=== PATIENT | female | born 1990 | race Two or more races ===

== ENCOUNTER 2020-06-07 11:56 | Outpatient (REF) | payer OTHER, SELFPAY ==
[2020-06-07 12:23] LABS: COVID-19 Test Negative (Negative); IDNOW Serial# 55D5AD1C
== END 2020-06-07 11:57 | disposition home or self-care (01) ==
LOC: HO.LAB 11:56
PROVIDERS: Visit Provider Internal Medicine
DX: Z20.828 Contact with and (suspected) exposure to other viral communicable diseases (principal)
CPT/HCPCS: 87635; C9803

== ENCOUNTER 2020-06-17 08:15 | Outpatient (REF) | payer OTHER, SELFPAY ==
[2020-06-17 08:33] LABS: COVID-19 Test Negative (Negative); IDNOW Serial# 55D5AD1C
== END 2020-06-17 08:16 | disposition home or self-care (01) ==
LOC: HO.EMPCOV 08:15
PROVIDERS: Visit Provider Internal Medicine
DX: Z20.828 Contact with and (suspected) exposure to other viral communicable diseases (principal)
CPT/HCPCS: 87635; C9803

== ENCOUNTER 2020-10-01 08:21 | Outpatient (REF) | payer OTHER, SELFPAY ==
[2020-10-01 09:40] LABS: COVID-19 Test Negative (Negative); IDNOW Serial# 55D5AD1C
== END 2020-10-01 08:22 | disposition home or self-care (01) ==
LOC: HO.EMPCOV 08:21
PROVIDERS: Visit Provider Internal Medicine
DX: Z20.822 Contact with and (suspected) exposure to COVID-19 (principal)
CPT/HCPCS: 36415; 87635; C9803

== ENCOUNTER 2020-10-05 09:23 | Outpatient (REF) | payer OTHER, SELFPAY ==
[2020-10-05 10:08] LABS: COVID-19 Test Negative (Negative)
== END 2020-10-05 09:24 | disposition home or self-care (01) ==
LOC: HO.EMPCOV 09:23
PROVIDERS: Visit Provider Internal Medicine
DX: Z20.822 Contact with and (suspected) exposure to COVID-19 (principal)
CPT/HCPCS: 36415; 87635; C9803

== ENCOUNTER 2024-09-10 09:19 | Outpatient (AMB) | payer OTHER, SELFPAY ==
[2024-09-10 09:23] VITALS: BP 120/84; PULSE 66; O2SAT 99; BMI 35.5
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
== END 2024-09-10 10:14 | disposition home or self-care (01) ==
PROVIDERS: Visit Provider Physician Assistant
DX: M54.6 Pain in thoracic spine (principal); M54.2 Cervicalgia; V89.2XXA Person injured in unspecified motor-vehicle accident, traffic, initial encounter; M54.9 Dorsalgia, unspecified

== ENCOUNTER → 2024-09-10 09:19 | Outpatient (BNVA) | payer OTHER, SELFPAY | PROVIDERS: Visit Provider Physician Assistant | DX: M54.6 Pain in thoracic spine (principal); M54.2 Cervicalgia | CPT/HCPCS: 96372; J1885 ==

== ENCOUNTER 2024-11-25 11:00 | Outpatient (AMB) | payer OTHER, SELFPAY ==
--- NOTE | 2024-11-25 11:17 | AM.OFFWIN_ITS ---
Intake Vital Signs 11/25/24 11:21 Weight 169 lb BP 120/86 Blood Pressure Location Lt brachial Position Sitting Pulse 71 Pulse Source Pulse Oximeter Temp 98.3 F Temp Source Oral Pulse Oximetry (%) 98 Oxygen Delivery Method Room Air Intake Visit Reasons: EP cold symptoms Intake Note: Patient here for dry throat, cough, chest congestion, slight SOB that has been present for a couple of days. Patient Tobacco Use Status: Never used Tobacco Allergies No Known Allergies Allergy (Unverified 11/25/24 11:25) Do you need a note to return to daycare/school/sports/work: Yes HPI HPI Comments History of Present Illness Details History - The patient is a 34-year-old female pr esenting with cough and shortness of breath, which started approximately five days ago. - The cough has progressively worsened, interrupting her sleep and causing rib soreness. - She has a history of asthma, managed w ith Welexa twice daily, and uses a nebulizer with rescue inhaler PRN. Has used it this AM with relief of sob. - She also uses a daily allergy pill. - The patient vapes currently. - Denies fevers, ear pain or sinus pain. Physical Exam General: Cooperative, healthy appearing, comfortable and no acute distress Orientation/consciousness: Patient oriented x3 Limitations: No limitations Head: Normal to inspection Ears: Hearing grossly normal bilaterally, external ears normal and TM's normal bilaterally Nose: Normal external nose present, Normal nares present and No nasal discharge present Face and sinus: Normal facial exam and Yes sinuses nontender Mouth: Normal oral and palatal mucosa present and moist mucous membranes Throat: Yes tonsils normal, Yes uvula midline. Posterior oropharynx erythema, no exudates Eyes: Appearance normal, both eyes and all related structures Neck: Normal visual inspection Respiratory: exp wheezes bilaterally. Normal respiratory effort, able to speak in complete sentences, Actively coughing, no respiratory distress, not tachypneic, no tripod positioning and no use of accessory muscles. Cardiovascular: Regular rate and rhythm. Normal S1 and S2 Skin: No rashes or lesions noted Neuro: Patient oriented x3 Extremities: Normal to inspection and Yes no clubbing, cyanosis or edema PFSH Social History Patient Tobacco Use Status: Never used Tobacco Review of Systems Const All systems reviewed & are unremarkable except as noted in HPI and below Physical Exam Vital Signs: Last Vital Signs Temp 98.3 F 11/25/24 11:21 Pulse 71 11/25/24 11:21 BP 120/86 11/25/24 11:21 Pulse Ox 98 11/25/24 11:21 Oxygen Delivery Method Room Air 11/25/24 11:21 Assessment & Plan Assessment & Plan (1) Lower respiratory infection (e.g., bronchitis, pneumonia, pneumonitis, pulmonitis): Code(s): J22 - Unspecified acute lower respiratory infection Plan: VSS, pt well appearing and PE remarkable for exp wheezes. - Prescribe prednisone for acute asthma exacerbation to alleviate wheezing and difficulty breathing. - Prescribe doxycycline in place of azithromycin to manage potential bacterial involvement without risk of QT prolongation with citalopram. - Advise frequent nebulizer use and supplemental inhaler use as needed for imme diate symptom relief. - Emphasize the cessation of vaping to prevent exacerbation of asthma symptoms. - Continue daily allergy medication for symptom management. - Provide a note for work absence and advise return if symptoms persist, to evaluate further need for intervention. Patient was informed and verbally consented to the use of an ambient scribe for clinic note documentation during this visit (2) Mild asthma exacerbation: Code(s): J45.901 - Unspecified asthma with (acute) exacerbation Plan: as above Medications: New doxycycline hyclate 100 mg PO BID 10 tabs 0RF prednisone 40 mg (2 x 20 mg) PO QAM 10 tabs 0RF Coding Level of Care Code New Pt Level 3 (34563) Diagnoses Lower respiratory infection (e.g., bronchitis, pneumonia, pneumonitis, pulmonitis) J22 Mild asthma exacerbation J45.901
[2024-11-25 11:21] VITALS: BP 120/86; PULSE 71; TEMP 36.8; O2SAT 98
--- OUTSIDE RECORDS SUMMARY | 2024-11-25 13:06 | XMS_ITS ---
Author Organization [facility] Address [address] [place] [phone] Care Team Providers Care Football Pad Repairer Name Role Phone Krishna ORTA, Leonie Primary Care Provider Damaris Moyer Unavailable [phone] REASON FOR VISIT COLP- LGSIL ORANGE SHEET IN CHART Encounters Encounter Location Date Provider Diagnosis [facility] [address] [address] 10/15/2023 Damaris Felder Plan Of Treatment No Information Progress Notes * ALIA CONKLINOB: [birth year] (34 yo F)Acc No.[id number]:10/15/2023 Progress Note Patient:?SHILA CONKLIN Appointment Provider:?Damaris cummings M.D. :1990???Age:33 Y???Sex:Female D ate:10/15/2023 Address:[address] [place], [place] [phone] Pcp:Leonie Keller NP Subjective: * Chief Complaints: * ???1. COLP- LGSIL ORANGE SHE ET IN CHART. * Medical History:?Tobacco use , Migraine, unspecified, not intractable, with status migrainosus, Unspecified asthma with (acute) exacerbation, Irregular menstruation, unspecified, Cervical high risk human papillomavirus (HPV) DNA test positive, Atypical squamous cells of undetermined significance on cytologic smear of cervix (ASC-US), Low grade squamous intraepithelial lesion on cytologic smear of cervix (LGSIL), Mild cervical dysplasia. 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 Control:?condoms, oral contraceptive pill.?Gardasil:?series completed.? * OB History:?Total pregnancies?1.?Total living children?0.?Miscarriage(s)?08/2018.? Objective: * Vitals:? Assessment: Plan: * Treatment: * Images: Billing Information: * Visit Code:? * Procedure Codes:? * Electronic signature of Tiara Felder MD on 11/25/2024 at 01:05 PM EDT Sign off status: Pending * Appointment Provider:?Damaris Felder M.D. Date:?10/15/2023 Generated for [place]/Emiliano/eTransmitting on:?11/25/2024 01:05 PM EDT
== END 2024-11-25 11:43 | disposition home or self-care (01) ==
PROVIDERS: Visit Provider Physician Assistant
DX: J22 Unspecified acute lower respiratory infection (principal); J45.901 Unspecified asthma with (acute) exacerbation

== ENCOUNTER → 2024-11-25 11:00 | Outpatient (BNVA) | payer OTHER, SELFPAY | PROVIDERS: Supervising Provider Physician Assistant | DX: Z13.89 Encounter for screening for other disorder (principal) ==

== ENCOUNTER 2024-11-27 10:27 | Outpatient (AMB) | payer OTHER, SELFPAY ==
[2024-11-27 10:28] VITALS: BP 138/86; PULSE 80; TEMP 36.9; O2SAT 100; BMI 35.4
--- NOTE | 2024-11-27 10:28 | AM.OFFWIN_ITS ---
Intake Vital Signs 11/27/24 10:28 Height 4 ft 10 in Weight 169 lb 4 oz BMI 35.4 BP 138/86 Blood Pressure Location Lt brachial Position Sitting Pulse 80 Pulse Source Pulse Oximeter Temp 98.4 F Temp Source Oral Pulse Oximetry (%) 100 Oxygen Delivery Method Room Air Intake Visit Reasons: EP-vomiting Intake Note: Pt presents to the office today for c/o cold symptoms x1 week. Pt states she saw Latoya and was given doxycycline. Pt states she is now having nausea and vomiting since this morning. Patient Tobacco Use Status: Never used Tobacco Allergies No Known Allergies Allergy (Unverified 11/27/24 10:31) HPI HPI Comments History of Present Illness Details History - The patient is a 34-year-old female pr esenting with respiratory illness and associated symptoms of nausea and vomiting. - Previously treated with doxycycline an d prednisone for PNA, with prednisone improving breathing. - Nausea and vomiting began on the 2nd d ay of doxycycline treatment, with vomiting occurring at 3 AM. - Vomitus was clear, with no blood or ab normal color. - The patient has been consuming only so up due to a sore throat. - No COVID-19 test has been conducted du ring this illness. Physical Exam General: Cooperative, healthy appearing, uncomfortable and no acute distress Orientation/consciousness: Patient oriented x3 Limitations: No limitations Head: Normal to inspection Ears: Hearing grossly normal bilaterally, external ears normal Nose: Normal external nose present, Normal nares present and No nasal discharge present Face and sinus: Normal facial exam Eyes: Appearance normal, both eyes and all related structures Neck: Normal visual inspection Respiratory: Normal respiratory effort, able to speak in complete sentences, no respiratory distress, not tachypneic, no tripod positioning and no use of accessory muscles Skin: No rashes or lesions noted Neuro: Patient oriented x3 Extremities: Normal to inspection and Yes no clubbing, cyanosis or edema PFSH Social History Patient Tobacco Use Status: Never used Tobacco Review of Systems Const All systems reviewed & are unremarkable except as noted in HPI and below Physical Exam Vital Signs: Last Vital Signs Temp 98.4 F 11/27/24 10:28 Pulse 80 11/27/24 10:28 BP 138/86 11/27/24 10:28 Pulse Ox 100 11/27/24 10:28 Oxygen Delivery Method Room Air 11/27/24 10:28 BMI result Body Mass Index 35.4 Assessment & Plan Assessment & Plan (1) Nausea & vomiting: Code(s): R11.2 - Nausea with vomiting, unspecified Qualifiers: Vomiting type: unspecified Qualified Code(s): R11.2 - Nausea with vomiting, unspecified Plan: - Switch from doxycycline to Augmentin for respiratory illness management as nausea and vomiting could be linked to Doxycycline. - Prescribe ondansetron for nausea, with instructions to take every 8 hours as needed. - Recommend dietary adjustments, including crackers and soup, and ensure adequate hydration with electrolyte drinks and water. Patient was informed and verbally consented to the use of an ambient scribe for clinic note documentation during this visit (2) Lower respiratory infection (e.g., bronchitis, pneumonia, pneumonitis, pulmonitis): Code(s): J22 - Unspecified acute lower respiratory infection Plan: as above Medications: New amoxicillin-pot clavulanate 875-125 mg 1 tab PO Q12H 8 tabs 0RF ondansetron 4 mg PO Q8H PRN 10 tabs 0RF nausea and vomiting Discontinued doxycycline hyclate Discontinued Reason: Doctor's Order 100 mg PO BID 10 tabs 0RF Coding Level of Care Code New Pt Level 3 (19004) Diagnoses Nausea and vomiting, unspecified vomiting type R11.2 Vomiting type: unspecified Lower respiratory infection (e.g., bronchitis, pneumonia, pneumonitis, pulmonitis) J22
--- OUTSIDE RECORDS SUMMARY | 2024-11-27 12:08 | XMS_ITS ---
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 :1990???Age:33 Y???Sex:Female D ate:10/15/2023 Address:[address] [place], [place] [id number] Pcp:Leonie Keller NP Subjective: * Chief Complaints: [...] of cervix (LGSIL), Mild cervical dysplasia. 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 Control:?condoms, oral contraceptive pill.?Gardasil:?series completed.? * OB History:?Total pregnancies?1.?Total living children?0.?Miscarriage(s)?08/2018.? Objective: * Vitals:? Assessment: Plan: * Treatment: * Images: Billing Information: * Visit Code:? * Procedure Codes:? * Electronic signature of Tiara Felder MD on 11/27/2024 at 12:08 PM EDT Sign off status: Pending * Appointment Provider:?Damaris Felder M.D. Date:?10/15/2023 Generated for [place]/Emiliano/eTransmitting on:?11/27/2024 12:08 PM EDT
== END 2024-11-27 11:27 | disposition home or self-care (01) ==
PROVIDERS: Visit Provider Physician Assistant
DX: R11.2 Nausea with vomiting, unspecified (principal); J22 Unspecified acute lower respiratory infection

== ENCOUNTER → 2024-11-27 10:27 | Outpatient (BNVA) | payer OTHER, SELFPAY | PROVIDERS: Visit Provider Physician Assistant | DX: Z13.89 Encounter for screening for other disorder (principal) ==

== ENCOUNTER 2025-01-19 09:19 | Outpatient (AMB) | payer OTHER, SELFPAY ==
--- OUTSIDE RECORDS SUMMARY | 2023-10-15 04:20 | XMS_ITS ---
Author Organization [facility] Address [address] [place] [phone] Care Team Providers Care Cardroom Attendant Name Role Phone Krishna ORTA, Leonie Primary Care Provider Damaris Moyer Unavailable [phone] REASON FOR VISIT COLP- LGSIL ORANGE SHEET IN CHART Encounters Encounter Location Date Provider Diagnosis [facility] [address] [address] 10/15/2023 Damaris Felder Plan Of Treatment No Information Progress Notes * ALIA CONKLINOB: [birth year] (34 yo F)Acc No.[id number]:10/15/2023 Progress Note Patient: SHILA MOLINA Appointment Provider: Erendira Felder M.D. :1990 A ge:33 Y S ex:Female Date:10/15/2023 Address:[address] [place], [place] [id number] Pcp:Leonie Keller NP Subjective: * Chief Complaints: * 1 . COLP- LGSIL ORANGE SHEET IN CHART. * Medical History: T obacco use, Migraine, unspecified, not intractable, with status migrainosus, Unspecified asthma with (acute) exacerbation, Irregular menstruation, unspecified, Cervical high risk human papillomavirus (HPV) DNA test positive, Atypical squamous cells of undetermined significance on cytologic smear of cervix (ASC-US), Low grade squamous intraepithelial lesion on cytologic smear of cervix (LGSIL), Mild cervical dysplasia. 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 S exual activity n ot currently sexually active. L ast Pap Smear: LGSIL NEG HRHPV, 08/01/22 NIL, NEG HPV, 01/31/22 ASCUS, POS HRHPV, 04/22/21 LGSIL, POS HRHPV, 03/30/20 ASCUS, NEG HRHPV, 03/06/19 NIL, 03/04/18 NIL, 03/04/18 neg, 02/26/17 neg, 09/01/2015, neg. A bnormal Pap Smear: 1 07/24/20 [place], LGSIL, positive HRHPV, 2013, positive HRHPV. L MP and menses . H istory of STD's: H uman Papilloma Virus (HPV)/ condyloma. B irth Control: c ondoms, oral contraceptive pill. G ardasil: s eries completed. * OB History: T otal pregnancies 1 . T otal living children 0 . M iscarriage(s) , 08/2018. Objective: * Vitals: Assessment: Plan: * Treatment: * Images: Billing Information: * Visit Code: * Procedure Codes: * Electronic signature of Tiara Felder MD on 01/19/2025 at 09:45 AM EDT Sign off status: Pending * Appointment Provider: Erendira Felder M.D. Date: 0 10/15/2023 Generated for [place]/Emiliano/Shayneitting on: 0 01/19/2025 09:45 AM EDT
[2025-01-19 09:21] VITALS: BP 104/66; PULSE 80; TEMP 36.8; O2SAT 99; BMI 35.7
--- NOTE | 2025-01-19 09:21 | MHC.OFFWIV ---
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 - The headache began as a dull ache last week and intensified over the weekend, becoming severe and persistent despite the use of Excedrin and ibuprofen. - The sore throat and ear pain developed subsequently, with the patient experiencing significant discomfort when swallowing. - The patient reports nasal congestion without discharge and has been consuming broth due to throat pain. - No prior covid test was conducted before this visit. - She is not a smoker. - She denies fever, chills, CP, SOB, abd pain, n/v/d. - She has no sick contacts. Physical Exam General: Cooperative, healthy appearing, comfortable and no acute distress Orientation/consciousness: Patient oriented x3 Limitations: No limitations Head: Normal to inspection Ears: Hearing grossly normal bilaterally, external ears normal, but left ear is really red Nose: Normal external nose present, normal nares present, and no nasal discharge present. Face and sinus: Sinuses tender to palpation. Mouth: Normal oral and palatal mucosa present and moist mucous membranes noted. Throat: Tonsils normal. Uvula is midline. Posterior oropharynx with erythema and no exudates. Eyes: Appearance normal, both eyes and all related structures Neck: Normal visual inspection, full ROM. No lymphadenopathy noted. Respiratory: Clear to auscultation bilaterally. Normal respiratory effort, able to speak in complete sentences. No respiratory distress, not tachypneic, no tripod positioning and no use of accessory muscles. Cardiovascular: Regular rate and rhythm. Normal S1 and S2 Skin: No rashes or lesions noted Patient was informed and verbally consented to the use of an ambient scribe for clinic note documentation during this visit [facility] Social History Patient Tobacco Use Status: Never used Tobacco Patient : No Female Reproductive History Menstrual Date of last menstrual period: 01/18/25 Review of Systems Const All systems reviewed & are unremarkable except as noted in HPI and below Physical Exam Vital Signs: Last Vital Signs Temp 98.2 F 01/19/25 09:21 Pulse 80 01/19/25 09:21 BP 104/66 01/19/25 09:21 Pulse Ox 99 01/19/25 09:21 Oxygen Delivery Method Room Air 01/19/25 09:21 BMI result Body Mass Index 35.7 Assessment & Plan Assessment & Plan (1) Nasal congestion: Code(s): R09.81 - Nasal congestion (2) Sore throat: Code(s): J02.9 - Acute pharyngitis, unspecified Plan Most likely URI vs sinusitis vs strep Rapid in the office is negative Plan - Initiate antibiotic therapy to address suspected sinusitis - zyrtec d daily - Perform a rapid strep test to rule out streptococcal pharyngitis. - VSS, pt well appearing. - tylenol or motrin as needed - follow up with PCP Orders: Orders AMB Rapid Strep Screen Today Z13.9 - Encounter for screening, unspecified Medications: New cetirizine-pseudoephedrine 5-120 mg ER 1 tab PO BID 14 tabs 0RF 7 days amoxicillin-pot clavulanate 875-125 mg 1 tab PO Q12H 14 tabs 0RF 7 days Coding Level of Care Code Est Pt Level 4 (88810) Diagnoses Nasal congestion R09.81 Sore throat J02.9
== END 2025-01-19 10:11 | disposition home or self-care (01) ==
PROVIDERS: Visit Provider Physician Assistant Medical
DX: R09.81 Nasal congestion (principal); J02.9 Acute pharyngitis, unspecified